=== PATIENT | female | born 2000 ===

== ENCOUNTER 2023-04-06 20:50 | Inpatient (IN) | payer BC ==
[2023-04-06] MEDS ORDERED: Methylergonovine 0.2 MG/1 ML Amp IM PRN (21:05)
[2023-04-06] MEDS ORDERED: Ondansetron 4 MG/2 ML SDV IVPUSH PRN (21:05)
[2023-04-06] MEDS ORDERED: Lidocaine 1% 50 ML MDV INJECT PRN (21:05)
[2023-04-06] MEDS ORDERED: Carboprost Tromethamine 250 MCG/1 mL Vial IM PRN (21:05)
[2023-04-06] MEDS ORDERED: Tranexamic Acid 1,000 MG in Sodium Chloride 0.9% 100 ML IV PRN (21:05)
[2023-04-06] MEDS ORDERED: Butorphanol 1 MG/ML SDV IVPUSH PRN (21:05)
[2023-04-06] MEDS ORDERED: Misoprostol 200 MCG Tab PO PRN (21:05)
[2023-04-06] MEDS ORDERED: Sodium Chloride 0.9% 2.5 ML Syringe FLUSH PRN (21:05)
[2023-04-06] MEDS ORDERED: Ampicillin 2 GM in Sodium Chloride 0.9% 100 ML IV ONE (21:05)
[2023-04-06] MEDS ORDERED: Sodium Chloride 0.9% 20 ML SDV IV PRN (21:05)
[2023-04-06] MEDS ORDERED: Water For Irrigation,Sterile 1,000 ML Container IRR PRN (21:05)
[2023-04-06] MEDS ORDERED: Sodium Chloride 0.9% 10 ML Syringe FLUSH PRN (21:05)
[2023-04-06] MEDS ORDERED: Oxytocin/0.9 % Sodium Chloride 30 UNIT/500 ML BAG IV SCH (21:15)
[2023-04-06] MEDS ORDERED: Lactated Ringers 1,000 ML IV SCH (21:15)
[2023-04-06 21:22] LABS: HEMATOCRIT 38.4 % (36.0-46.0); HEMOGLOBIN 12.6 g/dL (12.0-16.0); MEAN CORPUSCULAR HEMOGLOBIN 25.7 pg (27.0-32.0); MEAN CORPUSCULAR HGB CONC 32.8 g/dL (31.0-37.0); MEAN CORPUSCULAR VOLUME 78.2 fL (80.0-98.0); MEAN PLATELET VOLUME 10.8 fL (7.40-12.00); RED BLOOD CELL COUNT 4.91 M/uL (4.30-5.90)
[2023-04-07] MEDS ORDERED: Bisacodyl 10 MG Supp RECTAL PRN (01:23)
[2023-04-07] MEDS ORDERED: Lanolin 100% Cream 7 GM Tube TOP PRN (01:23)
[2023-04-07] MEDS ORDERED: Acetaminophen 500 MG Tab PO PRN ×2 (01:23)
[2023-04-07] MEDS ORDERED: Ibuprofen 800 MG Tab PO PRN (01:23)
[2023-04-07] MEDS ORDERED: Ibuprofen 400 MG Tab PO PRN (01:23)
[2023-04-07] MEDS ORDERED: Benzocaine/Menthol 20%-0.5% Spray 78 GM Cannister TOP PRN (01:23)
[2023-04-07] MEDS: Ampicillin 1 GM in Sodium Chloride 0.9% 50 ML IV SCH ×6 (02:23→21:00)
[2023-04-07] MEDS: Witch Hazel Medicated Pads 40/Jar TOP PRN (05:40)
[2023-04-07] MEDS: Docusate Sodium 100 MG Cap PO PRN ×2 (05:42→21:14)
[2023-04-07] MEDS ORDERED: Lactated Ringers 1,000 ML IV ONE (06:37)
[2023-04-07] MEDS ORDERED: Lactated Ringers 1,000 ML IV SCH (06:45)
[2023-04-08] MEDS: Ampicillin 1 GM in Sodium Chloride 0.9% 50 ML IV SCH ×2 (01:00→05:00)
[2023-04-08 06:56] LABS: HEMATOCRIT 25.8 % (36.0-46.0); HEMOGLOBIN 8.1 g/dL (12.0-16.0)
[2023-04-08] MEDS: Witch Hazel Medicated Pads 40/Jar TOP PRN (12:59)
== END 2023-04-09 17:00 | disposition home or self-care (01) | DRG 542 ==
LOC: MW.OBCHECK 20:50 → MW.OB 21:00 → MW.OBCHECK 21:04 → MW.OB 21:05 → OBSVTOIN 04-07 02:08 → MW.OB 04-07 06:32
PROVIDERS: ADMIT Obstetrics & Gynecology Obstetrics; ATTEND Obstetrics & Gynecology Obstetrics
PROC: 0DQR0ZZ Repair Anal Sphincter, Open Approach (ICD-10-PCS; principal; 2023-04-07)
PROC: 10D07Z6 Extraction of Products of Conception, Vacuum, Via Natural or Artificial Opening (ICD-10-PCS; 2023-04-07)
DX: O48.0 Post-term pregnancy (principal); O70.20 Third degree perineal laceration during delivery, unspecified; O77.9 Labor and delivery complicated by fetal stress, unspecified; Z37.0 Single live birth; Z3A.42 42 weeks gestation of pregnancy
CPT/HCPCS: 36415; 59025; 59409; 59414; 85014; 85018; 85027; 86850; 86900; 86901; A9270-GY; J2001; J2590; J7120